=== PATIENT | female | born 1990 | race Caucasian/White ===

== ENCOUNTER 2019-08-30 08:07 | Inpatient (IN) ==
[2019-08-30] MEDS ORDERED: Oxytocin 20 units/ LR 1000 mL 20 UNIT/1,000 ML BAG IVC ONE (08:39)
[2019-08-30] MEDS ORDERED: Famotidine 20 MG/2 ML VIAL IVP ONE (08:39)
[2019-08-30] MEDS ORDERED: Ringers Solution, Lactated 1,000 ML IVC ONE (08:39)
[2019-08-30] MEDS ORDERED: CeFAZolin Premix DUPLEX 2,000 MG/50 ML BAG IVPB ONE (08:39)
[2019-08-30] MEDS ORDERED: Metoclopramide 10 MG/2 ML VIAL IVP ONE (08:39)
[2019-08-30] MEDS ORDERED: Oxytocin 20 units/ LR 1000 mL 20 UNIT/1,000 ML BAG IVC SCH ×2 (08:45→14:25)
[2019-08-30] MEDS ORDERED: Ringers Solution, Lactated 1,000 ML IVC SCH ×2 (08:45→14:25)
[2019-08-30 09:03] LABS: Basophils % 0.3 %; Eosinophils # 0.1 K/mcL (0.0-0.6); Hematocrit 32.2 % (35.3-44.9); Immature Granulocytes % 0.6 % (0-4); Lymphocytes # 2.7 K/mcL (0.6-4.6); Lymphocytes % 24.1 %; Mean Corpuscular HGB Conc 34.2 g/dL (31.6-35.5); Mean Corpuscular Hemoglobin 30.8 pg (28.0-33.3); Mean Corpuscular Volume 90.2 fL (83.0-100.0); Mean Platelet Volume 10.7 fL (9.4-12.4); Monocytes # 0.8 K/mcL (0.0-1.3); Monocytes % 6.9 %; Neutrophils # 7.6 K/mcL (1.6-8.9); Platelet Count 302 K/mcL (140-400); Red Blood Count 3.57 M/mcL (3.82-4.97); Red Cell Distribution Width 14.1 % (11.5-14.5); Segmented Neutrophils % 67.1 %; White Blood Count 11.3 K/mcL (4.3-11.1)
[2019-08-30 10:33] LABS: Amphetamine Screen,Urine Negative ng/mL (Cutoff=1000); Barbiturate Screen,Urine Negative ng/mL (Cutoff=200); Benzodiazepines Screen,Urine Negative ng/mL (Cutoff=200); Cannabinoid Screen,Urine Negative ng/mL (Cutoff = 50); Cocaine Screen,Urine Negative ng/mL (Cutoff= 300); Opiate Screen,Urine Negative ng/mL (Cutoff=300); Phencyclidine Screen,Urine Negative ng/mL (Cutoff=25)
[2019-08-30] MEDS ORDERED: *HR* Oxytocin 10 UNIT/ML VIAL IM ONE ×2 (10:44)
[2019-08-30] MEDS ORDERED: *HR* Morphine Sulfate/PF 10 MG/10 ML AMPUL ONE (10:44)
[2019-08-30] MEDS ORDERED: Ringers Solution, Lactated 1,000 ML ONE (10:44)
[2019-08-30] MEDS ORDERED: *HR* FentaNYL (PF) 100 MCG/2 ML VIAL ONE (10:44)
[2019-08-30] MEDS ORDERED: Acetaminophen IV 1,000 MG/100 ML INFUS..BTL IVPB ONE (11:37)
[2019-08-30] MEDS ORDERED: Ondansetron 4 MG/2 ML VIAL IVP PRN ×2 (11:37→14:25)
[2019-08-30] MEDS ORDERED: *HR* Meperidine 25 MG/ML SYRINGE IVP PRN (11:37)
[2019-08-30] MEDS ORDERED: Simethicone 80 MG TAB.CHEW PO PRN (14:25)
[2019-08-30] MEDS ORDERED: Rho Immune Globulin 1,500 UNIT SYRINGE IM ONE (14:25)
[2019-08-30] MEDS ORDERED: Sennosides 8.6 MG TABLET PO PRN (14:25)
[2019-08-30] MEDS ORDERED: Metoclopramide 10 MG/2 ML VIAL IVP PRN (14:25)
[2019-08-30] MEDS: Ibuprofen 600 MG TABLET PO PRN ×2 (15:37→23:10)
[2019-08-30] MEDS ORDERED: Nicotine 14 MG PATCH.TD24 TD SCH (17:15)
[2019-08-30] MEDS: metroNIDAZOLE 500 MG TABLET PO SCH (18:16)
[2019-08-30] MEDS: *HR* Buprenorphine HCl 8 MG TAB.SUBL SL SCH (20:42)
[2019-08-30] MEDS: cephALEXin 500 MG CAPSULE PO SCH (20:46)
[2019-08-31] MEDS ORDERED: *HR* OxyCODONE/APAP 5/325 TABLET PO PRN (01:00)
[2019-08-31 08:53] LABS: Basophils % 0.1 %; Eosinophils % 0.1 %; Hematocrit 30.3 % (35.3-44.9); Hemoglobin 10.3 g/dL (11.5-15.4); Immature Granulocytes % 0.6 % (0-4); Lymphocytes # 1.6 K/mcL (0.6-4.6); Lymphocytes % 7.3 %; Mean Corpuscular Hemoglobin 31.2 pg (28.0-33.3); Mean Corpuscular Volume 91.8 fL (83.0-100.0); Mean Platelet Volume 10.7 fL (9.4-12.4); Monocytes # 1.1 K/mcL (0.0-1.3); Monocytes % 5.2 %; Platelet Count 301 K/mcL (140-400); Red Cell Distribution Width 14.4 % (11.5-14.5); Segmented Neutrophils % 86.7 %
[2019-08-31 08:54] LABS: Neutrophils # 18.6 K/mcL (1.6-8.9); White Blood Count 21.5 K/mcL (4.3-11.1)
[2019-08-31] MEDS: *HR* Buprenorphine HCl 8 MG TAB.SUBL SL SCH ×2 (09:10→20:59)
[2019-08-31] MEDS: cephALEXin 500 MG CAPSULE PO SCH ×2 (09:10→20:59)
[2019-08-31] MEDS: metroNIDAZOLE 500 MG TABLET PO SCH ×2 (09:10→20:59)
[2019-08-31] MEDS: Prenatal Vit/FA 1 EACH TABLET PO SCH (09:10)
[2019-09-01 07:53] VITALS: BP 114/76
[2019-09-01] MEDS: *HR* Buprenorphine HCl 8 MG TAB.SUBL SL SCH (08:57)
[2019-09-01] MEDS: metroNIDAZOLE 500 MG TABLET PO SCH (08:59)
[2019-09-01] MEDS: Ibuprofen 600 MG TABLET PO PRN (08:59)
[2019-09-01] MEDS: Prenatal Vit/FA 1 EACH TABLET PO SCH (09:00)
[2019-09-01] MEDS: cephALEXin 500 MG CAPSULE PO SCH (09:00)
[2019-09-01] MEDS ORDERED: Etonogestrel 68 MG IMPLANT IL ONE (10:43)
[2019-09-01] MEDS ORDERED: Lidocaine -MPF 1% 5 ML AMPUL INFILT ONE (10:43)
== END 2019-09-01 13:30 | disposition home or self-care (01) | DRG 540 ==
LOC: 1NENULAB 08:07 → 1NENUOBS 14:22
PROVIDERS: ADMIT Obstetrics & Gynecology; ATTEND Obstetrics & Gynecology